=== PATIENT | male | born 1940 | race Caucasian/White ===

== ENCOUNTER 2019-08-05 02:07 | Emergency (ER) | payer MEDICARE, MEDICAID ==
[~2019-08-05] VITALS: Ht 180.3 cm; Wt 54.9 kg
[~2019-08-05 02:07] MED LIST: BENA40TA73 PO; HCTZ25T PO; NOR5T PO; OXYC15TA82 PO; PER5325T PO; ROSU20TA2 PO
--- NOTE | 2019-08-05 03:07 | NUR ---
IRRIGATED STEPHENS WITH 75ML OF STERILE WATER. NO URINE RETURN. CHECKED INDWELLING BALLOON-HAD ONLY 1 CC OF FLUID. REINFLATED WITH 9ML STERILE WATER (TOTAL 10ML) AND RECEIVED URINE RETURN WITH PT EXPRESSING RELIEF OF SYMPTOMS. URINE STILL DRAINING AT THIS TIME. RODRIGUEZ VAUGHN MADE AWARE OF FINDINGS.
[2019-08-05 03:37] VITALS: BP 123/81
[2019-08-05 03:37] LABS: CLARITY,URINE TURBID (Clear); COLOR,URINE RED (Yellow); GLUCOSE, URINE NEGATIVE (Neg); KETONES,URINE NEGATIVE (Neg); LEUKOCYTE ESTERASE ,URINE MODERATE (Neg); NITRITES, URINE NEGATIVE (Neg); OCCULT BLOOD,URINE LARGE (Neg); PROTEIN,URINE >=300 mg/dl (Neg); UA COLLECTION TYPE FOLEY CATH; UROBILINOGEN,URINE 0.2 E.U/dL (0.2-1.0)
[2019-08-05 03:38] LABS: BACTERIA,URINE 2+ /HPF (Neg); RBC,URINE TNTC /HPF (0-2); SQUAMOUS EPITHELIAL CELL,UR NONE SEEN /LPF (FEW); WBC,URINE TNTC /HPF (0-4)
--- NOTE | 2019-08-09 09:57 | NUR ---
LAB RESULTS FAXED TO [facility] PER DR REARDON @ WILL CALL DEPARTMENT SATURDAY MORNING TO CONFIRM RECIEPT OF FAX AT [phone]
--- NOTE | 2019-08-10 10:40 | NUR ---
CALLED [facility] TO VERIFY THAT THE PT'S RECENT LAB RESULTS FROM 08/04 WAS RECEIVED. VERIFIED THE FAX # THAT WAS ORIGINALLY GIVEN AND WAS INFORMED THAT THE LAB RESULTS WERE NOT RECEIVED. WAS GIVEN A NEW FAX # AND LABS WERE REFAXED TO Addendum: 08/10/19 at 1106 by JAROD CALLED TO CONFIRM FAX RECEIVED BY [facility], FAX WAS NOT RECEIVED AND LABS WERE REFAXED TO . REQUESTED A CALL BACK TO VERIFY THAT [facility] RECEIVED THE FAX FROM [facility]
== END 2019-08-05 03:45 | disposition home or self-care (01) ==
LOC: ER 02:08
DX: T83.098A Other mechanical complication of other urinary catheter, initial encounter (principal); E78.00 Pure hypercholesterolemia, unspecified; I10 Essential (primary) hypertension; Z79.899 Other long term (current) drug therapy
CPT/HCPCS: 51700; 81001; 87077; 87088; 87186; 99284

== ENCOUNTER 2020-09-19 18:00 | Emergency (ER) | payer MEDICARE, MEDICAID ==
[~2020-09-19] VITALS: Ht 180.3 cm; Wt 75.0 kg
[2020-09-19] MEDS ORDERED: normal saline 1000ml 1,000 ML IV ONE (18:30)
[2020-09-19] MEDS ORDERED: metoprolol tartrate 1mg/ml inj IV ONE (18:30)
--- NOTE | 2020-09-19 18:35 | NUR ---
xray at bedside
[2020-09-19] MEDS ORDERED: DEXL60CA3 PO (18:48)
[2020-09-19] MEDS ORDERED: LOSA100T57 PO (18:48)
[2020-09-19] MEDS ORDERED: ASPI-1265 PO (18:48)
[2020-09-19] MEDS ORDERED: ASCO500C18 PO (18:50)
[2020-09-19] MEDS ORDERED: ERGO400C PO (18:51)
--- NOTE | 2020-09-19 18:55 | NUR ---
med rec complete. dr topete notified
--- NOTE | 2020-09-19 19:03 | NUR ---
MEDICAL RECORDS RELEASE FAXED TO [facility]
[2020-09-19 19:07] LABS: BASOPHILS % (AUTO) 0.4 % (0-1); EOSINOPHILS # (AUTO) 0.1 X10'3 (0-0.9); EOSINOPHILS % (AUTO) 1.4 % (0-6); LYMPHOCYTES # (AUTO) 0.7 X10'3 (1.1-4.8); LYMPHOCYTES % (AUTO) 14.3 % (21-51); MEAN CORPUSCULAR HEMOGLOBIN 28.3 PG (27.0-31.0); MEAN CORPUSCULAR HGB CONC 33.3 g/dL (33.0-36.5); MEAN CORPUSCULAR VOLUME 84.9 FL (78-98); MEAN PLATELET VOLUME 8.7 FL (7.4-10.4); MONOCYTES # (AUTO) 0.5 X10'3 (0-0.9); MONOCYTES % (AUTO) 9.4 % (2-12); NEUTROPHILS # (AUTO) 3.8 X10'3 (1.8-7.7); NEUTROPHILS % (AUTO) 74.5 % (42-75); PLATELET COUNT 174 X10'3 (140-440); RED BLOOD COUNT 4.95 X10'6 (4.70-6.10); RED CELL DISTRIBUTION WIDTH 16.3 % (11.5-14.5); WHITE BLOOD COUNT 5.2 X10'3 (4.5-11.0)
--- NOTE | 2020-09-19 19:10 | NUR ---
IV metoprolol being held at this time since heart rate is below 100. If starts to climb again then we can give it per DR Moore.
[2020-09-19 19:24] LABS: ALANINE AMINOTRANSFERASE 15 U/L (12-78); ALBUMIN 3.3 G/DL (3.4-5.0); ALBUMIN/GLOBULIN RATIO 0.8 (1.1-1.5); ALKALINE PHOSPHATASE 57 IU/L (46-116); ANION GAP 8 (8-16); ASPARTATE AMINO TRANSFERASE 16 U/L (10-37); BILIRUBIN,TOTAL 0.5 MG/DL (0.1-1.0); BLOOD UREA NITROGEN 25 MG/DL (7-18); BUN/CREATININE RATIO 19.5 (5.4-32.0); CALCIUM 8.7 MG/DL (8.5-10.1); CHLORIDE 108 MMOL/L (99-107); CREATININE 1.28 MG/DL (0.60-1.10); GLUCOSE 104 MG/DL (70-104); POTASSIUM 4.4 MMOL/L (3.5-5.1); SODIUM 141 MMOL/L (135-145); TOTAL CARBON DIOXIDE 24.7 MMOL/L (24-32); TOTAL PROTEIN 7.4 G/DL (6.4-8.2); eGFR 54 ML/MIN
[2020-09-19 19:31] LABS: MAGNESIUM 1.8 MG/DL (1.5-2.4)
[2020-09-19] MEDS ORDERED: metoprolol succinate 25mg (24-HOUR) SR. Tablet PO ONE (20:00)
[2020-09-19] MEDS ORDERED: METO-395 PO (20:13)
--- NOTE | 2020-09-19 20:37 | NUR ---
at time of oral metroplol admin, pt standing at bedside and pt heart rate afib rate 150s-160s. gave oral metrolol and sat pt back in bed. currently waiting to see if heart rate comes back down.
[2020-09-19] MEDS ORDERED: LORazepam 2 mg/ml vial IV ONE (21:55)
[2020-09-19 22:50] VITALS: BP 119/72
== END 2020-09-19 22:54 | disposition home or self-care (01) ==
LOC: ER 18:02
DX: I48.0 Paroxysmal atrial fibrillation (principal); E78.00 Pure hypercholesterolemia, unspecified; I10 Essential (primary) hypertension; N40.0 Benign prostatic hyperplasia without lower urinary tract symptoms; Z79.82 Long term (current) use of aspirin; Z79.899 Other long term (current) drug therapy
CPT/HCPCS: 36415; 71045; 80053; 83735; 83880; 84484; 85025; 85610; 93005; 96361; 96374; 99285; J2060; J7030

== ENCOUNTER 2020-12-31 06:11 | Inpatient (IN) | payer MEDICARE, MEDICAID ==
[~2020-12-31] VITALS: Ht 180.3 cm; Wt 81.8 kg
[~2020-12-31 06:11] MED LIST changes: +ASCO500C18 PO; +ASPI-1265 PO; -BENA40TA73 PO; +DEXL60CA3 PO; +ERGO400C PO; -HCTZ25T PO; +LOSA100T57 PO; +METO-395 PO; -NOR5T PO; -OXYC15TA82 PO; -PER5325T PO
[2020-12-31 09:24] LABS: BASOPHILS % (AUTO) 0.1 % (0-1); EOSINOPHILS % (AUTO) 0.1 % (0-6); HEMATOCRIT 43.5 % (42.0-52.0); HEMOGLOBIN 14.3 g/dl (14.0-17.9); LYMPHOCYTES # (AUTO) 0.8 X10'3 (1.1-4.8); LYMPHOCYTES % (AUTO) 6.6 % (21-51); MEAN CORPUSCULAR HEMOGLOBIN 27.8 PG (27.0-31.0); MEAN CORPUSCULAR HGB CONC 32.8 g/dL (33.0-36.5); MEAN CORPUSCULAR VOLUME 84.5 FL (78-98); MEAN PLATELET VOLUME 8.7 FL (7.4-10.4); MONOCYTES # (AUTO) 1.6 X10'3 (0-0.9); MONOCYTES % (AUTO) 13.6 % (2-12); NEUTROPHILS # (AUTO) 9.4 X10'3 (1.8-7.7); NEUTROPHILS % (AUTO) 79.6 % (42-75); PLATELET COUNT 193 X10'3 (140-440); RED BLOOD COUNT 5.15 X10'6 (4.70-6.10); RED CELL DISTRIBUTION WIDTH 17.9 % (11.5-14.5); WHITE BLOOD COUNT 11.9 X10'3 (4.5-11.0)
[2020-12-31 09:39] LABS: ALANINE AMINOTRANSFERASE 30 U/L (12-78); ALBUMIN 3.3 G/DL (3.4-5.0); ALBUMIN/GLOBULIN RATIO 0.7 (1.1-1.5); ALKALINE PHOSPHATASE 67 IU/L (46-116); ASPARTATE AMINO TRANSFERASE 92 U/L (10-37); BILIRUBIN,TOTAL 1.3 MG/DL (0.1-1.0); BLOOD UREA NITROGEN 26 MG/DL (7-18); CALCIUM 9.3 MG/DL (8.5-10.1); CHLORIDE 104 MMOL/L (99-107); CREATININE 1.63 MG/DL (0.60-1.10); GLUCOSE 116 MG/DL (70-104); POTASSIUM 4.1 MMOL/L (3.5-5.1); TOTAL PROTEIN 8.1 G/DL (6.4-8.2); eGFR 41 ML/MIN
[2020-12-31 09:42] LABS: ANION GAP 14 (8-16); BILIRUBIN,DIRECT 0.4 MG/DL (0-0.3); LIPASE 73 U/L (73-393); SODIUM 140 MMOL/L (135-145)
[2020-12-31] MEDS ORDERED: iohexol 300mg/ml 100ml inj. ONE (16:52)
[2020-12-31 23:33] LABS: D-DIMER 1.26 MG/L FEU (0-0.50)
[2021-01-01] MEDS ORDERED: metoprolol tartrate 1mg/ml inj IV ONE ×3 (00:10→02:05)
[2021-01-01 00:17] LABS: CLARITY,URINE CLOUDY (Clear); COLOR,URINE YELLOW (Yellow); UA COLLECTION TYPE INDWELLING CATH
[2021-01-01 00:18] LABS: GLUCOSE, URINE NEGATIVE (Neg); KETONES,URINE NEGATIVE (Neg); LEUKOCYTE ESTERASE ,URINE SMALL (Neg); NITRITES, URINE POSITIVE (Neg); OCCULT BLOOD,URINE LARGE (Neg); PROTEIN,URINE 100 mg/dl (Neg); UROBILINOGEN,URINE 0.2 E.U/dL (0.2-1.0)
[2021-01-01 00:19] LABS: BACTERIA,URINE 2+ /HPF (Neg); SQUAMOUS EPITHELIAL CELL,UR FEW /LPF (FEW); WBC,URINE 50-100 /HPF (0-4)
[2021-01-01] MEDS ORDERED: levoFLOXACIN-Levaquin 500mg/D5 100 ML IV ONE (00:25)
[2021-01-01 00:48] LABS: URINE AMPHETAMINE SCREEN NEGATIVE (Neg); URINE BARBITUATE SCREEN NEGATIVE (Neg); URINE BENZODIAZEPINES SCREEN NEGATIVE (Neg); URINE CANNABINOID SCREEN NEGATIVE (Neg); URINE COCAINE SCREEN NEGATIVE (Neg); URINE METHADONE SCREEN NEGATIVE (Neg); URINE OPIATE SCREEN NEGATIVE (Neg); URINE PHENCYCLIDINE SCREEN NEGATIVE (Neg)
[2021-01-01] MEDS ORDERED: magnesium 4gm in 100ml NS 100 ML IV PRN (03:40)
[2021-01-01] MEDS: normal saline 1000ml 1,000 ML IV SCH ×2 (03:40→16:11)
[2021-01-01] MEDS ORDERED: HYDROcodone/acetaminophen 5mg/325mg tablet PO PRN (03:40)
[2021-01-01] MEDS ORDERED: magnesium 2GM in 50ml NS 50 ML IV PRN (03:40)
[2021-01-01] MEDS ORDERED: potassium Cl 40MEQ/1/2NS 520ml 520 ML IV PRN ×2 (03:40)
[2021-01-01] MEDS ORDERED: morphine 2 MG/ML inj. syringe IV PRN ×2 (03:40)
[2021-01-01] MEDS ORDERED: potassium Cl 20 mEq SR tablet PO PRN ×2 (03:40)
[2021-01-01] MEDS ORDERED: HYDROcodone/acetaminophen 10/325mg tab PO PRN (03:40)
[2021-01-01] MEDS ORDERED: PERFLUTREN PROTEIN-A MICROSPHR (Optison) 0.22 MG/ML 3ML VIAL IV PRN (03:40)
[2021-01-01] MEDS ORDERED: ondansetron/PF 4mg/2ml inj IV PRN (03:40)
[2021-01-01] MEDS ORDERED: acetaminophen 325mg tablet PO PRN ×2 (03:40)
[2021-01-01] MEDS ORDERED: magnesium Cl slow-release 64mg tablet PO PRN (03:40)
[2021-01-01] MEDS ORDERED: magnesium hydroxide 30ml (MOM) UD suspension PO PRN (03:40)
[2021-01-01] MEDS ORDERED: diltiazem-NS 100mg/100ml 125 ML IV SCH (04:20)
[2021-01-01] MEDS ORDERED: LORazepam 1 MG tablet PO PRN (04:30)
[2021-01-01] MEDS ORDERED: LORazepam 2 mg/ml vial IV PRN (04:30)
[2021-01-01] MEDS: diltiazem-NS 100mg/100ml 100 ML IV SCH (04:52)
[2021-01-01] MEDS ORDERED: NIFE90TA44 PO (04:55)
[2021-01-01] MEDS ORDERED: NIFEdipine XL 30mg tablet PO SCH (08:00)
[2021-01-01] MEDS: losartan 50mg tablet PO SCH (08:00)
[2021-01-01] MEDS: heparin, porcine 5000 units/ml vial SQ SCH ×3 (08:00→21:11)
[2021-01-01] MEDS: K and/or MAG REPLACEMENT MC SCH ×2 (08:00→21:04)
[2021-01-01] MEDS: metoprolol succinate 25mg (24-HOUR) SR. Tablet PO SCH ×2 (10:09→21:10)
[2021-01-01] MEDS: levoFLOXACIN-Levaquin 500mg/D5 100 ML IV SCH (10:09)
[2021-01-01] MEDS: thiamine 100mg tablet PO SCH (10:10)
[2021-01-01] MEDS: pantoprazole 40mg Tablet.DR PO SCH (10:10)
[2021-01-01] MEDS: aspirin 81mg tab.chew PO SCH (10:10)
[2021-01-01] MEDS: atorvastatin 20mg tablet PO SCH (10:10)
[2021-01-01] MEDS: folic acid 1mg tablet PO SCH (10:10)
[2021-01-01] MEDS: multivitamins, therapeutics tablet PO SCH (10:11)
--- NOTE | 2021-01-01 10:17 | NUR ---
pt indwelling cath intact
--- NOTE | 2021-01-01 10:19 | NUR ---
dr. dia at bedside.
--- NOTE | 2021-01-01 10:28 | NUR ---
PER DR. SARINA AVERY NUCLEAR SCAN.
--- NOTE | 2021-01-01 16:15 | NUR ---
PT HAS CATH SELF X3 TOTAL URINE 600CC TOTAL ABOUT 200CC EACH CATH
--- NOTE | 2021-01-01 19:33 | NUR ---
ASSUMED CARE OF PT. PT SITTING UP AND EATING DINNER I ENTERED ROOM.
[2021-01-01] MEDS ORDERED: temazepam 15mg capsule PO PRN (21:00)
[2021-01-02] MEDS: diltiazem-NS 100mg/100ml 100 ML IV SCH (00:50)
[2021-01-02 07:13] LABS: BASOPHILS % (AUTO) 0.2 % (0-1); EOSINOPHILS # (AUTO) 0.1 X10'3 (0-0.9); EOSINOPHILS % (AUTO) 1.1 % (0-6); HEMATOCRIT 39.9 % (42.0-52.0); HEMOGLOBIN 13.5 g/dl (14.0-17.9); LYMPHOCYTES # (AUTO) 0.6 X10'3 (1.1-4.8); LYMPHOCYTES % (AUTO) 11.3 % (21-51); MEAN CORPUSCULAR HEMOGLOBIN 28.3 PG (27.0-31.0); MEAN CORPUSCULAR HGB CONC 33.8 g/dL (33.0-36.5); MEAN CORPUSCULAR VOLUME 83.6 FL (78-98); MEAN PLATELET VOLUME 9.3 FL (7.4-10.4); MONOCYTES # (AUTO) 0.7 X10'3 (0-0.9); MONOCYTES % (AUTO) 12.4 % (2-12); NEUTROPHILS # (AUTO) 4.2 X10'3 (1.8-7.7); PLATELET COUNT 135 X10'3 (140-440); RED BLOOD COUNT 4.77 X10'6 (4.70-6.10); RED CELL DISTRIBUTION WIDTH 17.5 % (11.5-14.5); WHITE BLOOD COUNT 5.6 X10'3 (4.5-11.0)
[2021-01-02 07:52] LABS: ALANINE AMINOTRANSFERASE 38 U/L (12-78); ALBUMIN 2.4 G/DL (3.4-5.0); ALBUMIN/GLOBULIN RATIO 0.6 (1.1-1.5); ALKALINE PHOSPHATASE 60 IU/L (46-116); ANION GAP 12 (8-16); ASPARTATE AMINO TRANSFERASE 61 U/L (10-37); BLOOD UREA NITROGEN 40 MG/DL (7-18); BUN/CREATININE RATIO 25.5 (5.4-32.0); CALCIUM 8.6 MG/DL (8.5-10.1); CHLORIDE 107 MMOL/L (99-107); CREATININE 1.57 MG/DL (0.60-1.10); GLUCOSE 103 MG/DL (70-104); MAGNESIUM 1.6 MG/DL (1.5-2.4); POTASSIUM 3.9 MMOL/L (3.5-5.1); SODIUM 139 MMOL/L (135-145); TOTAL CARBON DIOXIDE 19.8 MMOL/L (24-32); TOTAL PROTEIN 6.5 G/DL (6.4-8.2); eGFR 43 ML/MIN
[2021-01-02] MEDS: K and/or MAG REPLACEMENT MC SCH ×2 (08:00→20:00)
[2021-01-02] MEDS: heparin, porcine 5000 units/ml vial SQ SCH ×2 (08:00→08:36)
[2021-01-02] MEDS: thiamine 100mg tablet PO SCH (08:34)
[2021-01-02] MEDS: losartan 50mg tablet PO SCH (08:34)
[2021-01-02] MEDS: folic acid 1mg tablet PO SCH (08:34)
[2021-01-02] MEDS: atorvastatin 20mg tablet PO SCH (08:35)
[2021-01-02] MEDS: multivitamins, therapeutics tablet PO SCH (08:35)
[2021-01-02] MEDS: metoprolol succinate 25mg (24-HOUR) SR. Tablet PO SCH ×2 (08:35→20:42)
[2021-01-02] MEDS: pantoprazole 40mg Tablet.DR PO SCH (08:35)
[2021-01-02] MEDS: aspirin 81mg tab.chew PO SCH (08:36)
[2021-01-02] MEDS: levoFLOXACIN-Levaquin 500mg/D5 100 ML IV SCH (08:49)
[2021-01-02 11:00] VITALS: BP 131/70
[2021-01-02] MEDS: furosemide 20 MG/2 ML vial IV SCH ×2 (12:06→20:41)
--- NOTE | 2021-01-02 12:45 | NUR ---
SPOKE TO FILIPPO ON THE WOUND TEAM, FILIPPO IS UNSURE ABOUT WHAT CAN BE DONE TO HELP PT, BUT AGREED TO STOP BY AND ASSESS.
[2021-01-02 15:00] VITALS: BP 131/93
[2021-01-02 18:00] VITALS: BP 103/77
--- NOTE | 2021-01-02 18:43 | NUR ---
Problems reprioritized. Patient report given, questions answered & plan of care reviewed with ASHLEY IGNACIO.
--- NOTE | 2021-01-02 19:06 | NUR ---
Patient in room PCU 3023. I have received report from Katelin RAMIREZ and had the opportunity to ask questions and assume patient care.
[2021-01-02 22:00] VITALS: BP 131/41
[2021-01-03 02:00] VITALS: BP 137/76
[2021-01-03 06:00] VITALS: BP 144/74
--- NOTE | 2021-01-03 06:16 | NUR ---
Problems reprioritized. Patient report given, questions answered & plan of care reviewed with Salena RAMIREZ.
--- NOTE | 2021-01-03 06:30 | NUR ---
Patient in room PCU 3023. I have received report from Gladis RAMIREZ and had the opportunity to ask questions and assume patient care.
[2021-01-03 06:48] LABS: BASOPHILS % (AUTO) 0.4 % (0-1); EOSINOPHILS # (AUTO) 0.1 X10'3 (0-0.9); EOSINOPHILS % (AUTO) 2.1 % (0-6); HEMATOCRIT 42.6 % (42.0-52.0); HEMOGLOBIN 14.5 g/dl (14.0-17.9); LYMPHOCYTES # (AUTO) 0.9 X10'3 (1.1-4.8); MEAN CORPUSCULAR HEMOGLOBIN 28.5 PG (27.0-31.0); MEAN CORPUSCULAR VOLUME 83.7 FL (78-98); MEAN PLATELET VOLUME 9.4 FL (7.4-10.4); MONOCYTES # (AUTO) 0.8 X10'3 (0-0.9); MONOCYTES % (AUTO) 13.9 % (2-12); NEUTROPHILS # (AUTO) 3.9 X10'3 (1.8-7.7); NEUTROPHILS % (AUTO) 68.6 % (42-75); PLATELET COUNT 156 X10'3 (140-440); RED BLOOD COUNT 5.09 X10'6 (4.70-6.10); RED CELL DISTRIBUTION WIDTH 17.8 % (11.5-14.5); WHITE BLOOD COUNT 5.7 X10'3 (4.5-11.0)
[2021-01-03 07:14] LABS: ALANINE AMINOTRANSFERASE 82 U/L (12-78); ALBUMIN 2.5 G/DL (3.4-5.0); ALBUMIN/GLOBULIN RATIO 0.6 (1.1-1.5); ALKALINE PHOSPHATASE 69 IU/L (46-116); ANION GAP 12 (8-16); ASPARTATE AMINO TRANSFERASE 103 U/L (10-37); BILIRUBIN,TOTAL 0.9 MG/DL (0.1-1.0); BLOOD UREA NITROGEN 42 MG/DL (7-18); BUN/CREATININE RATIO 22.7 (5.4-32.0); CALCIUM 8.9 MG/DL (8.5-10.1); CHLORIDE 105 MMOL/L (99-107); CREATININE 1.85 MG/DL (0.60-1.10); GLUCOSE 112 MG/DL (70-104); MAGNESIUM 1.6 MG/DL (1.5-2.4); POTASSIUM 3.8 MMOL/L (3.5-5.1); SODIUM 139 MMOL/L (135-145); TOTAL CARBON DIOXIDE 21.9 MMOL/L (24-32); eGFR 35 ML/MIN
[2021-01-03] MEDS: K and/or MAG REPLACEMENT MC SCH ×2 (08:00→20:00)
[2021-01-03] MEDS: folic acid 1mg tablet PO SCH (08:12)
[2021-01-03] MEDS: atorvastatin 20mg tablet PO SCH (08:12)
[2021-01-03] MEDS: pantoprazole 40mg Tablet.DR PO SCH (08:12)
[2021-01-03] MEDS: aspirin 81mg tab.chew PO SCH (08:12)
[2021-01-03] MEDS: thiamine 100mg tablet PO SCH (08:13)
[2021-01-03] MEDS: multivitamins, therapeutics tablet PO SCH (08:13)
[2021-01-03] MEDS: losartan 50mg tablet PO SCH (08:13)
[2021-01-03] MEDS: furosemide 20 MG/2 ML vial IV SCH ×2 (08:14→21:27)
[2021-01-03] MEDS: levoFLOXACIN-Levaquin 250mg/D5 50 ML IV SCH (08:29)
[2021-01-03] MEDS: metoprolol succinate 25mg (24-HOUR) SR. Tablet PO SCH ×2 (09:16→21:29)
[2021-01-03] MEDS ORDERED: diltiazem 5mg/ml 5ml inj. IV ONE (09:25)
[2021-01-03 11:04] VITALS: BP 126/63
[2021-01-03 15:20] VITALS: BP 114/68
[2021-01-03 18:00] VITALS: BP 134/82
--- NOTE | 2021-01-03 18:27 | NUR ---
Problems reprioritized. Patient report given, questions answered & plan of care reviewed with Valarie RN. Patient stable at transfer of care.
--- NOTE | 2021-01-03 18:45 | NUR ---
Patient in room PCU 3023. I have received report from ALEX RAMIREZ and had the opportunity to ask questions and assume patient care.
[2021-01-03] MEDS: lactobacillus rhamnosus 10,000 MMU CELLS/CAPSULE PO SCH (21:29)
[2021-01-03 22:00] VITALS: BP 119/79
[2021-01-04 02:00] VITALS: BP 143/92
[2021-01-04 05:59] LABS: BASOPHILS % (AUTO) 0.4 % (0-1); EOSINOPHILS # (AUTO) 0.3 X10'3 (0-0.9); EOSINOPHILS % (AUTO) 4.6 % (0-6); HEMATOCRIT 44.3 % (42.0-52.0); HEMOGLOBIN 15.1 g/dl (14.0-17.9); LYMPHOCYTES % (AUTO) 17.1 % (21-51); MEAN CORPUSCULAR HEMOGLOBIN 28.5 PG (27.0-31.0); MEAN CORPUSCULAR HGB CONC 34.1 g/dL (33.0-36.5); MEAN CORPUSCULAR VOLUME 83.6 FL (78-98); MEAN PLATELET VOLUME 8.8 FL (7.4-10.4); MONOCYTES % (AUTO) 17.1 % (2-12); NEUTROPHILS # (AUTO) 3.7 X10'3 (1.8-7.7); NEUTROPHILS % (AUTO) 60.8 % (42-75); PLATELET COUNT 175 X10'3 (140-440); RED BLOOD COUNT 5.31 X10'6 (4.70-6.10); RED CELL DISTRIBUTION WIDTH 17.5 % (11.5-14.5); WHITE BLOOD COUNT 6.1 X10'3 (4.5-11.0)
[2021-01-04 06:15] LABS: ALANINE AMINOTRANSFERASE 95 U/L (12-78); ALBUMIN 2.5 G/DL (3.4-5.0); ALBUMIN/GLOBULIN RATIO 0.5 (1.1-1.5); ALKALINE PHOSPHATASE 74 IU/L (46-116); ANION GAP 12 (8-16); ASPARTATE AMINO TRANSFERASE 93 U/L (10-37); BILIRUBIN,TOTAL 0.7 MG/DL (0.1-1.0); BLOOD UREA NITROGEN 45 MG/DL (7-18); BUN/CREATININE RATIO 25.6 (5.4-32.0); CALCIUM 9.1 MG/DL (8.5-10.1); CHLORIDE 104 MMOL/L (99-107); CREATININE 1.76 MG/DL (0.60-1.10); GLUCOSE 110 MG/DL (70-104); MAGNESIUM 1.6 MG/DL (1.5-2.4); POTASSIUM 3.5 MMOL/L (3.5-5.1); SODIUM 138 MMOL/L (135-145); TOTAL CARBON DIOXIDE 22.4 MMOL/L (24-32); TOTAL PROTEIN 7.2 G/DL (6.4-8.2); eGFR 38 ML/MIN
--- NOTE | 2021-01-04 06:30 | NUR ---
Problems reprioritized. Patient report given, questions answered & plan of care reviewed with CONSTANCE RAMIREZ.
--- NOTE | 2021-01-04 06:38 | NUR ---
Patient in room PCU 3023. I have received report from Valarie RAMIREZ and had the opportunity to ask questions and assume patient care.
[2021-01-04 06:53] VITALS: BP 136/80
[2021-01-04] MEDS: levoFLOXACIN-Levaquin 250mg/D5 50 ML IV SCH (07:15)
[2021-01-04] MEDS: furosemide 20 MG/2 ML vial IV SCH (07:15)
[2021-01-04] MEDS: aspirin 81mg tab.chew PO SCH (07:16)
[2021-01-04] MEDS: lactobacillus rhamnosus 10,000 MMU CELLS/CAPSULE PO SCH (07:16)
[2021-01-04] MEDS: multivitamins, therapeutics tablet PO SCH (07:16)
[2021-01-04] MEDS: folic acid 1mg tablet PO SCH (07:16)
[2021-01-04] MEDS: atorvastatin 20mg tablet PO SCH (07:17)
[2021-01-04] MEDS: thiamine 100mg tablet PO SCH (07:21)
[2021-01-04] MEDS: losartan 50mg tablet PO SCH (07:21)
[2021-01-04] MEDS: pantoprazole 40mg Tablet.DR PO SCH (07:22)
[2021-01-04] MEDS: K and/or MAG REPLACEMENT MC SCH (08:00)
--- NOTE | 2021-01-04 08:05 | NUR ---
Paged Dr. Saha regarding meds. PAGER ID: [phone] MESSAGE: [phone] Tim Hinton. Patient states he takes 50mg metoprolol in the morning and 25-50mg in the evening. Can we adjust PCU Rosy/Salena
[2021-01-04] MEDS: metoprolol succinate 25mg (24-HOUR) SR. Tablet PO SCH (08:36)
[2021-01-04] MEDS ORDERED: METO-395 PO (08:58)
[2021-01-04] MEDS ORDERED: LEVO500T90 PO (08:58)
[2021-01-04 11:00] VITALS: BP 130/64
[2021-01-04 11:14] LABS: GIANT PLATELET FEW; PLATELET ESTIMATE NORMAL; TOTAL CELLS COUNTED 100
[2021-01-04 11:15] LABS: ANISOCYTOSIS 1+; ELLIPTOCYTES FEW
[2021-01-04] MEDS ORDERED: diltiazem 5mg/ml 5ml inj. IV ONE (11:20)
[2021-01-04 11:29] VITALS: BP 130/64
--- NOTE | 2021-01-04 12:06 | NUR ---
Paged Dr. Saha regarding heart rate. PAGER ID: [phone] MESSAGE: [id number] Garrick Hinton. Patient heart rate at rest is 103 after Cardizem push. Jenna Martino
--- NOTE | 2021-01-04 13:42 | NUR ---
Paged Dr. Saha regarding discharge PAGER ID: [phone] MESSAGE: [phone] Garrick Hinton. Patient walked around unit. Heart rate between 110s-130s while ambulating. Do you still want me to discharge? PCU Crystal
--- NOTE | 2021-01-04 14:20 | NUR ---
Patient is stable for discharge per Dr. Saha orders. All discharge instructions reviewed with patient and all questions answered. New prescriptions were sent electronically to [facility] on [facility]. PIV discontinued, cannula intact. Telemetry discontinued. Belongings collected and sent with patient. Patient wheeled to lobby by nursing staff, patient picked up by [employer].
== END 2021-01-04 14:21 | disposition home or self-care (01) | DRG 698 ==
LOC: ER 06:11 → ED HOLD 01-01 03:50 → PCU 3S 01-02 09:49
PROVIDERS: ADMIT Internal Medicine; ATTEND Internal Medicine
PROC: BW211ZZ Computerized Tomography (CT Scan) of Abdomen and Pelvis using Low Osmolar Contrast (ICD-10-PCS; principal; 2020-12-31)
DX: T83.511A Infection and inflammatory reaction due to indwelling urethral catheter, initial encounter (principal); I50.23 Acute on chronic systolic (congestive) heart failure; I21.A1 Myocardial infarction type 2; N13.6 Pyonephrosis; I13.0 Hypertensive heart and chronic kidney disease with heart failure and stage 1 through stage 4 chronic kidney disease, or unspecified chronic kidney disease; K40.90 Unilateral inguinal hernia, without obstruction or gangrene, not specified as recurrent; N18.30 Chronic kidney disease, stage 3 unspecified; N40.1 Benign prostatic hyperplasia with lower urinary tract symptoms; B96.1 Klebsiella pneumoniae [K. pneumoniae] as the cause of diseases classified elsewhere; C69.91 Malignant neoplasm of unspecified site of right eye; E78.00 Pure hypercholesterolemia, unspecified; K21.9 Gastro-esophageal reflux disease without esophagitis; Z20.822 Contact with and (suspected) exposure to COVID-19; R31.9 Hematuria, unspecified; E78.5 Hyperlipidemia, unspecified; I34.1 Nonrheumatic mitral (valve) prolapse; I48.0 Paroxysmal atrial fibrillation; J44.9 Chronic obstructive pulmonary disease, unspecified; R33.8 Other retention of urine; Y84.6 Urinary catheterization as the cause of abnormal reaction of the patient, or of later complication, without mention of misadventure at the time of the procedure; Z79.82 Long term (current) use of aspirin; Z79.899 Other long term (current) drug therapy; Z85.46 Personal history of malignant neoplasm of prostate; Y92.89 Other specified places as the place of occurrence of the external cause
CPT/HCPCS: 36415; 74177; 80048; 80053; 80076; 80305; 80320; 81001; 81003; 83605; 83690; 83735; 83880; 84145; 84484; 85007; 85025; 85379; 87040; 87077; 87081; 87088; 87186; 87635; 93005; 93306; 97161; 97530; 99285; G0378; J1644; J1940; J1956; J3490; J7030; Q9967